=== PATIENT | female | born 2000 | race Caucasian/White ===

== ENCOUNTER → 2020-11-24 | Outpatient (CLI) | payer BC ==
[~2020-11-24] MED LIST: CLONAZEPAM1 MG PO
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
== END | disposition home or self-care (01) ==
LOC: PNCL 14:06
PROVIDERS: ATTEND Anesthesiology
DX: M79.604 Pain in right leg (principal); F41.9 Anxiety disorder, unspecified; F17.210 Nicotine dependence, cigarettes, uncomplicated; Z88.6 Allergy status to analgesic agent; Z72.89 Other problems related to lifestyle
CPT/HCPCS: 99214; G0463

== ENCOUNTER → 2020-11-27 | Outpatient (CLI) | payer BC ==
--- NOTE | 2020-11-27 13:04 | EEG ---
DATE OF SERVICE: 11/27/2020 ELECTROENCEPHALOGRAM EEG NUMBER: [id number]. OBJECTIVE: The patient is a 20-year-old female with history of seizures since age 14. DESCRIPTION: This is a digital study. Electrodes were placed according to the international 10-20 system. Bipolar and referential montages are available. Activation procedures typically include hyperventilation and intermittent photic stimulation. INTERPRETATION: The waking background consists of 9-10 Hz, 100 microvolt activity, symmetrically distributed over parietooccipital regions and reactive to eye opening. Hyperventilation and intermittent photic stimulation are noncontributory. Stage 2 sleep is achieved with normal electroencephalogram patterns. There are occasional sharp waves, which phase reverse at electrodes C3 and F3. IMPRESSION: This electroencephalogram with the patient awake and asleep is abnormal because of an epileptic disturbance of cerebral activity over the frontal central regions. 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 Thank you for letting us help with the patient's care. ALLISON/MADDIE/ZULMA DR: Geovani TID: [id number] CC: Qi Gould NP, MARIA C COTTON MD
== END ==
LOC: EEG 09:03
PROVIDERS: ATTEND Psychiatry & Neurology Neurology with Special Qualifications in Child Neurology
DX: R56.9 Unspecified convulsions (principal)
CPT/HCPCS: 95816